=== PATIENT | female | born 1995 | race Caucasian/White ===

== ENCOUNTER 2020-02-27 19:26 | Inpatient (IN) | payer BC, SELFPAY ==
[2020-02-27] VITALS (55 sets, daily range): BP systolic 85–240; BP diastolic 41–194; PULSE 26–180; RESP 18–20; TEMP 36.4–36.8; O2SAT 75–100; BMI 33.3
--- NOTE | 2020-02-27 19:26 | OBADM ---
This patient, Mila Maldonado, admitted to the OB room Labor/Delivery/Recovery 108 for observation. Patient/family oriented to hospital policies and general routines including ID bracelet, bed and alarms, visiting hours, pain management, procedures, bathroom and other care routines, personal items, smoking policy, room service/diet, and visiting hours. Patient/Family are encouraged to report perceived risks to care and to ask questions if they do not understand what they are told or what they should do.
[2020-02-27] MEDS: LACTATED RINGERS 1,000 ML 125 ML IV CONT ×2 (20:30→22:18)
--- NOTE | 2020-02-27 20:30 | LDADM ---
This patient, Mila Maldonado, was admitted to Labor/Delivery/Recovery 108 on 02/27/20 at 19:26. Plans for labor, pain management and were discussed with patient. Patient/family oriented to hospital policies and general routines including ID bracelet, bed and alarms, visiting hours, pain management, procedures, bathroom and other care routines, personal items, smoking policy, room service/diet and guest tray routines, security routines, and visiting hours. Patient/Family are encouraged to report perceived risks to care and to ask questions if they do not understand what they are told or what they should do. See OBIX for further documentation.
[2020-02-27 20:34] LABS: Basophils Percent Auto 0.2 % (0.2-1.2); Eosinophils Percent Auto 0.3 % (0-4.4); Hematocrit 37.4 % (37.0-47.0); Hemoglobin 13.2 g/dL (12.0-15.0); Immature Granulocyte Absolute 0.06 K/mm3 (0.00-0.031); Immature Granulocyte Percent A 0.4 % (0-0.5); Lymphocytes Absolute Auto 2.28 K/mm3 (0.9-3.2); Lymphocytes Percent Auto 15.9 % (18.3-44.2); Mean Corpuscular HGB Conc 35.3 g/dl (32-36); Mean Corpuscular Hemoglobin 29.1 pg (26-34); Mean Corpuscular Volume 82.4 fl (80-100); Mean Platelet Volume 10.2 fl (7.4-10.4); Monocytes Absolute Auto 0.5 K/mm3 (0.1-0.6); Monocytes Percent Auto 3.4 % (2.6-8.5); Neutrophils Absolute Auto 11.4 K/mm3 (1.3-6.7); Neutrophils Percent Auto 79.8 % (45.5-73.1); Platelet Count Result 276 k/mm3 (150-375); Red Blood Count 4.54 M/mm3 (4.2-5.4); Red Cell Distribution Width 12.7 % (11.5-14.5); White Blood Count 14.3 K/mm3 (4.5-10.0)
[2020-02-27 20:47] LABS: Uric Acid 5.9 mg/dL (2.5-7.5)
[2020-02-27 20:48] LABS: Alanine Aminotransferase 11 U/L (4-35); Albumin Level 3.3 g/dL (3.5-5.1); Alkaline Phosphatase 315 U/L (38-126); Anion Gap 13 mmol/L (8-16); Aspartate Amino Transferase 20 U/L (14-36); Bilirubin,Total 0.5 mg/dL (0.2-1.3); Blood Urea Nitrogen 8 mg/dL (7-17); Calcium 9.3 mg/dL (8.4-10.2); Carbon Dioxide 17 mmol/L (22-30); Chloride 105 mmol/L (98-107); Estimated Glomerular Filt Rate > 60; Glucose 97 mg/dL (65-105); Potassium 3.8 mmol/L (3.4-5.0); Sodium 135 mmol/L (137-145)
[2020-02-27] MEDS: AMPICILLIN 2 GM/NS 100 ML 2 GM/100 ML BAG IVPB (20:49)
[2020-02-27 20:54] LABS: Amphetamine Screen Urine Negative (Negative); Barbiturate Screen Urine Negative (Negative); Benzodiazepines Screen Urine Negative (Negative); Cannabinoid Screen Urine Negative (Negative); Cocaine Screen Urine Negative (Negative); Methadone Screen Urine Negative (Negative); Opiate Screen Urine Negative (Negative); Phencyclidine Screen Urine Negative (Negative)
[2020-02-27] MEDS: fentaNYL CITRATE INJ (*CRX) 100 MCG/2 ML VIAL IV PUSH (21:10)
[2020-02-27] MEDS: ONDANSETRON INJ 4 MG/2 ML VIAL IV PUSH (21:15)
--- NOTE | 2020-02-27 21:16 | PM.IMHP ---
H&P: HPI History of Present Illness Date/Time: 02/27/20 21:16 Chief complaint: Contractions Narrative: Mila Maldonado is a 24 year old female G1 at unknown gestational age, no care. Fundal height is consistent with full term . Presenting with contractions. Extremely uncomfortable with contractions. Review of Systems Constitutional: Constitutional: Reports no additional constitutional complaints Eyes: Eyes: Reports no additional eye complaints Cardiovascular: Cardiovascular: Reports no additional cardiovascular complaints Respiratory: Respiratory: Reports no additional respiratory complaints Gastrointestinal: Gastrointestinal: Reports no additional gastrointestinal complaints Genitourinary: Genitourinary: Reports no additional female genitourinary complaints Musculoskeletal: Musculoskeletal: Reports no additional musculoskeletal complaints Psychiatric: Psychiatric: Reports no additional psychiatric complaints Endocrine: Endocrine: Reports no additional endocrine complaints Hematologic/Lymphatic: Hematologic/Lymphatic: Reports no additional hematologic/lymphatic complaints Allergic/Immunologic: Allergic/Immunologic: Reports no additional allergic/immunologic complaints [facility] Family History Family History Mother Cerebrovascular accident Family history of diabetes mellitus in first degree relative Social History Social History Smoking status: Never smoker Alcohol intake: never Meds Home Medications and Allergies Allergies Allergy/AdvReac Type Severity Reaction Status Date / Time No Known Drug Allergies Allergy Verified 10/03/11 21:29 Vital Signs Vital Signs - 24 hr 02/27/20 20:01 02/27/20 20:26 02/27/20 20:45 Temperature Pulse Rate 105 H 117 H 168 H Respiratory Rate Blood Pressure 200/182 H 195/178 H 211/185 H 02/27/20 21:03 Temperature 36.4 C Pulse Rate Respiratory Rate 20 Blood Pressure Exam Const: General: cooperative, healthy appearing, uncomfortable (with contractions) and well groomed Nutritional Appearance: average body habitus Resp: Effort & Inspection: normal respiratory effort and able to speak in complete sentences Cardio: Rate: regular rate GI: Other: Fundal height consistent with full term : External Female Exam: normal external appearance Manual OB Exam: dilated 6 cm, effaced (90%) and station -1 Amniotic Fluid: Meconium-stained amniotic fluid present Neuro: General: oriented to person, oriented to place, oriented to time and patient oriented x3 Psych: Appearance: grossly normal Mental Status: mental status grossly normal H&P: Results Labs Labs: Short CBC 02/27/20 Range/Units 20:21 WBC 14.3 H (4.5-10.0) K/mm3 Hgb 13.2 (12.0-15.0) g/dL Hct 37.4 (37.0-47.0) % Plt Count 276 (150-375) k/mm3 BMP 02/27/20 20:21 Sodium 135 L Potassium 3.8 Chloride 105 Carbon Dioxide 17 L BUN 8 Creatinine 0.70 Glucose 97 Calcium 9.3 Liver Function 02/27/20 Range/Units 20:21 Total Bilirubin 0.5 (0.2-1.3) mg/dL AST 20 (14-36) U/L ALT 11 (4-35) U/L Alkaline Phosphatase 315 H (38-126) U/L Albumin 3.3 L (3.5-5.1) g/dL Assessment and Plan Assessment and plan (1) Active labor: Status: Acute Assessment and Plan: Admit to L&D Epidural for pain control labs
[2020-02-27 21:28] LABS: HIV 1/2 Ab P24 Ag Result Negative (Negative); Hepatitis B Surface Antigen Negative (Negative); Rubella IgG Antibody 12.4 IU/ML
--- NOTE | 2020-02-27 21:44 | WPDANESEPP ---
Anes - Eval Pre Procedure Procedure: labor epidural Date/Time: 02/27/20 21:44 Surgeon: luan Preop Diagnosis: pain during labor Pre Op Diagnosis: Contractions Patient Data Age: 24 Gender: F Height: Weight: Last Vital Signs Temp 36.4 C 02/27/20 21:03 Pulse 108 H 02/27/20 21:40 Resp 20 02/27/20 21:03 BP 153/79 H 02/27/20 21:40 Pulse Ox 99 02/27/20 21:42 Allergies Allergy/AdvReac Type Severity Reaction Status Date / Time No Known Drug Allergies Allergy Verified 10/03/11 21:29 Laboratory Tests 02/27/20 02/27/20 02/27/20 20:21 20:21 20:21 WBC 14.3 K/mm3 H K/mm3 (4.5-10.0) RBC 4.54 M/mm3 M/mm3 (4.2-5.4) Hgb 13.2 g/dL g/dL (12.0-15.0) Hct 37.4 % % (37.0-47.0) MCV 82.4 fl fl (80-100) MCH 29.1 pg pg (26-34) MCHC 35.3 g/dl g/dl (32-36) RDW 12.7 % % (11.5-14.5) Plt Count 276 k/mm3 k/mm3 (150-375) MPV 10.2 fl fl (7.4-10.4) Immature Gran % (Auto) 0.4 % % (0-0.5) Neut % (Auto) 79.8 % H % (45.5-73.1) Lymph % (Auto) 15.9 % L % (18.3-44.2) Cook % (Auto) 3.4 % % (2.6-8.5) Eos % (Auto) 0.3 % % (0-4.4) Baso % (Auto) 0.2 % % (0.2-1.2) Lymph # (Auto) 2.28 K/mm3 K/mm3 (0.9-3.2) Cook # (Auto) 0.5 K/mm3 K/mm3 (0.1-0.6) Eos # (Auto) 0.0 K/mm3 K/mm3 (0-0.3) Baso # (Auto) 0.0 K/mm3 K/mm3 (0.0-0.1) Abs Immat Gran (auto) 0.06 K/mm3 H K/mm3 (0.00-0.031) Absolute Neuts (auto) 11.4 K/mm3 H K/mm3 (1.3-6.7) Absolute Nucleated RBC 0.0 K/mm3 K/mm3 (0.0-0.012) Nucleated RBC % 0.0 % % (0.0-0.2) Sodium Potassium Chloride Carbon Dioxide Anion Gap BUN Creatinine Estim Creat Clear Calc Estimated GFR Glucose Uric Acid 5.9 mg/dL mg/dL (2.5-7.5) Calcium Total Bilirubin AST ALT Alkaline Phosphatase Total Protein Albumin Urine Opiates Screen Urine Methadone Screen Ur Barbiturates Screen Ur Phencyclidine Scrn Ur Amphetamine Screen U Benzodiazepines Scrn Urine Cocaine Screen U Cannabinoids Screen RPR Hep Bs Antigen HIV 1&2 Ab/P24 Ag 4thGn Negative (Negative) Rubella IgG Antibody Blood Type Antibody Screen 02/27/20 02/27/20 02/27/20 20:21 20:21 20:21 WBC RBC Hgb Hct MCV MCH MCHC RDW Plt Count MPV Immature Gran % (Auto) Neut % (Auto) Lymph % (Auto) Cook % (Auto) Eos % (Auto) Baso % (Auto) Lymph # (Auto) Cook # (Auto) Eos # (Auto) Baso # (Auto) Abs Immat Gran (auto) Absolute Neuts (auto) Absolute Nucleated RBC Nucleated RBC % Sodium 135 mmol/L L mmol/L (137-145) Potassium 3.8 mmol/L mmol/L (3.4-5.0) Chloride 105 mmol/L mmol/L (98-107) Carbon Dioxide 17 mmol/L L mmol/L (22-30) Anion Gap 13 mmol/L mmol/L (8-16) BUN 8 mg/dL mg/dL (7-17) Creatinine 0.70 mg/dL mg/dL (0.7-1.0) Estim Creat Clear Calc Not Reportable Estimated GFR > 60 (59 - ) Glucose 97 mg/dL mg/dL (65-105) Uric Acid Calcium 9.3 mg/dL mg/dL (8.4-10.2) Total Bilirubin 0.5 mg/dL mg/dL (0.2-1.3) AST 20 U/L U/L (14-36) ALT 11 U/L U/L (4-35) A
--- NOTE | 2020-02-27 22:00 | WPDHPUPDATE1 ---
History and Physical Update Update Date/Time: 02/27/20 22:00 History and Physical has been reviewed, including an updated exam of the patient. There are NO changes in the patient's condition. Risks, benefits, and alternatives have been discussed and questions answered. Patient agrees to proceed with procedure. Bedside US performed. Cephalic. Anterior placenta. EFW 3250gm. biometry consistent with gestational age of 37w0d.
[2020-02-28] VITALS (31 sets, daily range): BP systolic 108–155; BP diastolic 61–115; PULSE 65–131; RESP 16–20; TEMP 36.3–37.1; O2SAT 78–100
[2020-02-28] MEDS: AMPICILLIN 1 GM/NS 50 ML 1 GM/50 ML BAG IVPB (00:47)
[2020-02-28] MEDS: OXYTOCIN 30 UNITS/NS 500 ML 30 UNITS/500 ML BAG 999 UNITS IV CONT (02:01)
--- NOTE | 2020-02-28 02:24 | PM.OBPRVD ---
OB - Delivery Note Procedure Delivery date: 02/28/20 Procedure: Normal spontaneous vaginal delivery events: No Care Delivery augmentation: rupture of membranes Delivery monitor: external FHT Route of delivery: Laceration Description: Perineal - 2nd Degree Delivery repair: vicryl Specimen: Yes Estimated blood loss (mL): 400 Anesthesia type: Epidural Narrative: Once she was noted to be complete and ready to push, the labor bed was broken down and legs were placed in stirrups for support. With contractions and maternal efforts, the presented in OA position. The head was delivered. Checked for nuchal cord, nuchal cord noted, was not able to be reduced at the perineum. Gentle downward traction was applied and the anterior shoulder delivered without issues, followed by the posterior shoulder and rest of the body. Nuchal cord reduced upon delivery. was vigorous and crying, so delayed cord clamping of approximately 1 minute was performed. The cord was clamped and cut. Cord gasses collected. Placenta was delivered spontaneously. IV oxytocin administered and fundal massage applied. Exam was performed to identify any lacerations. 2nd degree perineal laceration was repaired with 2-0 Vicryl. Good hemostasis noted. Patient tolerated the procedure well. All instrument and sponge counts were correct at the end of the procedure. [place] Baby Date of : 02/28/20 Time of : 01:55 Weeks of gestation at delivery: 37 Infant gender: Male Weight (pounds): 7 Weight (ounces): 15 presentation: vertex position: Left Occiput Anterior Placenta delivery description: Spontaneous cord vessel description: 3 Vessels score one minute: 8 score five minutes: 9
[2020-02-28] MEDS: OXYTOCIN 30 UNITS/NS 500 ML 30 UNITS/500 ML BAG 125 UNITS IV CONT (02:35)
[2020-02-28] MEDS: BENZOCAINE 20% AER SPR (*SP) 56 GM CAN 1 SPRAY TOPICAL (04:12)
[2020-02-28] MEDS: WITCH HAZEL 40 PADS 1 PAD TOPICAL (04:12)
--- NOTE | 2020-02-28 05:48 | OBPPTRN ---
02/28/2020 at 0422. Patient transferred to post room #280. Oriented to unit, room, information board, rooming in, admission packet and security measures. Patient verbalizes understanding.
[2020-02-28] MEDS: IBUPROFEN 600 MG TABLET PO ×2 (07:22→16:22)
[2020-02-28] MEDS: POLYSACCHARIDE IRON COMPLEX 150 MG CAPSULE PO (07:23)
[2020-02-28] MEDS: MULTIVIT/MIN/PREN/FOL AC/IRON TABLET 1 TAB PO (07:23)
--- NOTE | 2020-02-28 08:40 | PC.NURSE ---
Quality Assurance Supervisor here at 0840 (Jennifer) to speak with patient regarding adoption options.
--- NOTE | 2020-02-28 11:05 | PCCCNOTE ---
Care Coordination. Pt. referred to CC for adoption. Met with pt. and her mother at bedside. Pt. reports she thought she had successful about 9 months ago, but obviously it was not. Pt. given list of adoption agencies and [facility] Spoke with Marylin at [facility] ([phone]). She spoke with pt. via phone and plans to come out to visit with pt. today. Pt.'s mother expressed at bedside to pt. that she thinks pt. shouldn't have adoption. Pt. snapped back that it was not her decision and mother agreed. Marylin aware of this and will see pt. Will follow.
[2020-02-28] MEDS: ONDANSETRON HCL ODT 4 MG TABLET PO (23:56)
[2020-02-29 00:23] LABS: Basophils Percent Auto 0.2 % (0.2-1.2); Eosinophils Absolute Auto 0.1 K/mm3 (0-0.3); Eosinophils Percent Auto 0.8 % (0-4.4); Hematocrit 36.7 % (37.0-47.0); Hemoglobin 12.2 g/dL (12.0-15.0); Immature Granulocyte Absolute 0.06 K/mm3 (0.00-0.031); Immature Granulocyte Percent A 0.4 % (0-0.5); Lymphocytes Absolute Auto 3.54 K/mm3 (0.9-3.2); Lymphocytes Percent Auto 23.6 % (18.3-44.2); Mean Corpuscular HGB Conc 33.2 g/dl (32-36); Mean Corpuscular Hemoglobin 28.8 pg (26-34); Mean Corpuscular Volume 86.8 fl (80-100); Mean Platelet Volume 10.3 fl (7.4-10.4); Monocytes Absolute Auto 0.6 K/mm3 (0.1-0.6); Monocytes Percent Auto 3.9 % (2.6-8.5); Neutrophils Absolute Auto 10.7 K/mm3 (1.3-6.7); Neutrophils Percent Auto 71.1 % (45.5-73.1); Platelet Count Result 265 k/mm3 (150-375); Red Blood Count 4.23 M/mm3 (4.2-5.4); Red Cell Distribution Width 13.1 % (11.5-14.5)
[2020-02-29 00:35] LABS: Alanine Aminotransferase 11 U/L (4-35); Albumin Level 3.5 g/dL (3.5-5.1); Alkaline Phosphatase 216 U/L (38-126); Anion Gap 6 mmol/L (8-16); Aspartate Amino Transferase 27 U/L (14-36); Bilirubin,Total 0.2 mg/dL (0.2-1.3); Blood Urea Nitrogen 8 mg/dL (7-17); Calcium 9.7 mg/dL (8.4-10.2); Carbon Dioxide 27 mmol/L (22-30); Chloride 104 mmol/L (98-107); Estimated CRCL calculation 107 ml/min; Estimated Glomerular Filt Rate > 60; Glucose 94 mg/dL (65-105); Potassium 3.9 mmol/L (3.4-5.0); Sodium 137 mmol/L (137-145)
--- NOTE | 2020-02-29 03:35 | PC.NURSE ---
02/29/2020 @ 2029 Patient viewed the discharge video Mother & Baby Care, The First Two Weeks . Patient was given the opportunity and encouraged to ask questions. Patient verbalized understanding of information shared and has been given the mother/baby guide for home reference.
[2020-02-29 04:00] VITALS: BP 123/73; PULSE 67; RESP 16; TEMP 36.6; O2SAT 99
--- NOTE | 2020-02-29 07:18 | WPDANLDPN2 ---
Anes-Prog Note L&D Date/Time: 02/29/20 07:18 Comfortable throughout: labor Neuraxial method: epidural Epidural/Spinal procedure site: clean & non-tender Neuro status: Neuro function grossly intact. Cardiovascular status: normal Respiratory status: normal Airway patency: baseline Post-Op hydration status: normal Vital Signs: Last Vital Signs Temp 36.6 C 02/29/20 04:00 Pulse 67 02/29/20 04:00 Resp 16 02/29/20 04:00 BP 123/73 02/29/20 04:00 Pulse Ox 99 02/29/20 04:00 Pain score (VAS): 0/10 Post-procedural complaints: none Patient feedback: Patient satisfied with anesthetic care.
[2020-02-29 07:35] VITALS: BP 126/78; PULSE 70; RESP 18; TEMP 36.6; O2SAT 100
--- NOTE | 2020-02-29 07:35 | PM.OBPNVD ---
OB - PN: Subj Subjective Date/time seen: 02/29/20 07:35 S/p on 02/27. Doing well, had some pain issues overnight but now much better. BPs elevated overnight, but pre-e workup negative. Denies headaches, vision changes. OB - PN: Obj Data Labs CBC & Chem 7: 02/29/20 00:09 02/29/20 00:07 Labs: Laboratory Results - last 24 hr 02/29/20 02/29/20 00:07 00:09 WBC 15.0 H RBC 4.23 Hgb 12.2 Hct 36.7 L MCV 86.8 D MCH 28.8 MCHC 33.2 RDW 13.1 Plt Count 265 MPV 10.3 Immature Gran % (Auto) 0.4 Neut % (Auto) 71.1 Lymph % (Auto) 23.6 Frontier % (Auto) 3.9 Eos % (Auto) 0.8 Baso % (Auto) 0.2 Lymph # (Auto) 3.54 H Frontier # (Auto) 0.6 Eos # (Auto) 0.1 Baso # (Auto) 0.0 Abs Immat Gran (auto) 0.06 H Absolute Neuts (auto) 10.7 H Absolute Nucleated RBC 0.0 Nucleated RBC % 0.0 Sodium 137 Potassium 3.9 Chloride 104 Carbon Dioxide 27 Anion Gap 6 L BUN 8 Creatinine 0.80 Estim Creat Clear Calc 107 Estimated GFR > 60 Glucose 94 Calcium 9.7 Total Bilirubin 0.2 AST 27 ALT 11 Alkaline Phosphatase 216 H Total Protein 7.0 Albumin 3.5 OB - PN A/P Assessment and Plan (1) (normal spontaneous vaginal delivery): Code(s): O80 - Encounter for full-term uncomplicated delivery Status: Acute Assessment and Plan: Routine care Pain management Ambulate (2) Gestational HTN: Code(s): O13.9 - Gestational [-induced] hypertension without significant proteinuria, unspecified trimester Status: Acute Assessment and Plan: Pre-E work up negative Time Spent With Patient Time: Total time spent is greater than 50% in coordination of care (as documented) at patient's floor/unit and/or counseling patient: Exam Const: General: cooperative, healthy appearing, comfortable and no acute distress Resp: Effort & Inspection: normal respiratory effort and able to speak in complete sentences Cardio: Rate: regular rate GI: GI Palp: No abdominal tenderness and Yes Soft to palpation Other: fundus firm Neuro: General: oriented to person, oriented to place, oriented to time and patient oriented x3 Psych: Appearance: grossly normal Mental Status: mental status grossly normal
--- NOTE | 2020-02-29 08:21 | PM.OBDSVD ---
DS: Admitting Diagnosis Admitting Diagnosis Admitting Diagnosis: Contractions DS: Discharge Diagnosis Discharge Diagnosis (1) (normal spontaneous vaginal delivery): Code(s): O80 - Encounter for full-term uncomplicated delivery Status: Acute Assessment and Plan: Routine care Pain management Ambulate Baby to be put up for adoption (2) Gestational HTN: Qualifiers: Trimester: third trimester Qualified Code(s): O13.3 - Gestational [-induced] hypertension without significant proteinuria, third trimester Code(s): O13.9 - Gestational [-induced] hypertension without significant proteinuria, unspecified trimester Status: Acute Assessment and Plan: Pre-E work up negative (3) No care in current : Qualifiers: Trimester: third trimester Qualified Code(s): O09.33 - Supervision of with insufficient care, third trimester Code(s): O09.30 - Supervision of with insufficient care, unspecified trimester Status: Acute OB - DS: Summary OB Procedures : None OB Procedures Intrapartum: Spontaneous Vag Delivery OB Procedures: : None Time Spent with Patient Time attestation: Total time spent providing and/or coordinating discharge services: Exam Const: General: cooperative, healthy appearing, comfortable, no acute distress and well groomed Nutritional Appearance: average body habitus Orientation/consciousness: oriented to person, oriented to place, oriented to time and patient oriented x3 Resp: Effort & Inspection: normal respiratory effort and able to speak in complete sentences Cardio: Rate: regular rate GI: Other: fundus firm : External Female Exam: normal external appearance Neuro: General: oriented to person, oriented to place, oriented to time and patient oriented x3 Psych: Appearance: grossly normal Mental Status: mental status grossly normal DS: Data Data Completed and Pending Pending studies at discharge: Pending at discharge 02/28/20 02:01 Surgical [PTH] Routine Labs on day of discharge: Labs from last 24 hours 02/29/20 02/29/20 00:09 00:07 WBC 15.0 H RBC 4.23 Hgb 12.2 Hct 36.7 L MCV 86.8 D MCH 28.8 MCHC 33.2 RDW 13.1 Plt Count 265 MPV 10.3 Immature Gran % (Auto) 0.4 Neut % (Auto) 71.1 Lymph % (Auto) 23.6 Finney % (Auto) 3.9 Eos % (Auto) 0.8 Baso % (Auto) 0.2 Lymph # (Auto) 3.54 H [place] # (Auto) 0.6 Eos # (Auto) 0.1 Baso # (Auto) 0.0 Abs Immat Gran (auto) 0.06 H Absolute Neuts (auto) 10.7 H Absolute Nucleated RBC 0.0 Nucleated RBC % 0.0 Sodium 137 Potassium 3.9 Chloride 104 Carbon Dioxide 27 Anion Gap 6 L BUN 8 Creatinine 0.80 Estim Creat Clear Calc 107 Estimated GFR > 60 Glucose 94 Calcium 9.7 Total Bilirubin 0.2 AST 27 ALT 11 Alkaline Phosphatase 216 H Total Protein 7.0 Albumin 3.5 Discharge Plan Discharge Attending physician on discharge: Claudia Forbes Discharging Clinician: Claudia Forbes Patient Disposition: Home, Self-Care Activity: may shower, as tolerated and pelvic rest Diet: regular Patient Instructions: Antibiotic Form, How to Stop Smoking (DC) Stand Alone Forms: General Discharge Information Follow-up/Referrals: Claudia Forbes DO [Physician] - Discharge Medications: New docusate sodium 100 mg Capsule 100 mg PO BID PRN (Reason: Constipation) Qty: 60 RF: 0 ibuprofen 600 mg Tablet 600 mg PO Q6H PRN (Reason: Cramping) Qty: 90 RF: 0 ondansetron 4 mg Tablet,Disintegrating 4 mg PO Q6H PRN (Reason: Nausea And Vomiting) Qty: 20 RF: 0 No Action No Home Medications RF: 0 Date of admission: 02/27/20 20:30 Primary Care Provider: Shayla Negron Admitting Provider: Claudia Forbes Attending physician on admission: Claudia Forbes
--- NOTE | 2020-02-29 10:19 | PCCCNOTE ---
Addendum entered by JACOB Herzog 02/29/20 13:17: Zoila with [facility] here and filling out paperwork with pt. She will put copy of power of county attorney form that names Jenniffer as 's POA to make decisions after mother discharges. Original Note: Care Coordination. Met with pt. at bedside along with Katrin LIZ, this a.m. Pt. is hoping to go home today and is aware infant will likely not leave until tomorrow per RN. She wants to continue with plan for adoption. She reports her parents are supportive of her, but are just disappointed she doesn't want to keep baby. Spoke with Zoila from [facility] [phone] and she will be out today to help find adoptive family with pt. She will bring her work ID and license to make a copy for 's chart. Will follow
[2020-02-29 12:00] VITALS: BP 136/87; PULSE 76; O2SAT 98
[2020-02-29] MEDS: IBUPROFEN 600 MG TABLET PO (12:03)
[2020-02-29 12:29] LABS: Rapid Plasma Reagin Non-Reactive (NonReactive)
[2020-03-01 07:57] VITALS: BP 153/99; PULSE 98; RESP 20; TEMP 36.7; O2SAT 100
== END 2020-02-29 14:15 | disposition home or self-care (01) | DRG 807 ==
LOC: ANHLDR 02-28 01:48 → ANHOB2 02-28 04:44
PROVIDERS: Admitting Provider Obstetrics & Gynecology; PCP Pediatrics; Visit Provider Obstetrics & Gynecology
DX: O13.4 Gestational [pregnancy-induced] hypertension without significant proteinuria, complicating childbirth (principal); Z37.0 Single live birth; Z3A.37 37 weeks gestation of pregnancy; Z23 Encounter for immunization; O69.81X0 Labor and delivery complicated by cord around neck, without compression, not applicable or unspecified; O70.1 Second degree perineal laceration during delivery; O36.8330 Maternal care for abnormalities of the fetal heart rate or rhythm, third trimester, not applicable or unspecified; O77.0 Labor and delivery complicated by meconium in amniotic fluid; O09.33 Supervision of pregnancy with insufficient antenatal care, third trimester
CPT/HCPCS: 36415; 80053; 80307; 84550; 85025; 86592; 86703; 86762; 86850; 86900; 86901; 87340; 88307; 90471; 90653; A9270; G0008; G0432; J0290; J2405; J2590; J3010; J7120

== ENCOUNTER 2020-03-22 01:43 | Emergency (ER) | payer BC, SELFPAY ==
--- NOTE | ~2020-03-22 | XR_ITS ---
EXAMINATION: XR toe 1st LT min 2V DATE: 03/22/2020 02:27 INDICATION: Soft tissue swelling at the left great toe TECHNIQUE: Dorsal plantar, lateral and oblique views of the left great toe were obtained. COMPARISON: None FINDINGS: Bone alignment is normal. No fracture. Joint spaces are normal. No cortical erosions or periosteal re action. Prominent soft tissue swelling plantar and medial to the first metatarsophalangeal joint. No soft tissue gas or radiopaque foreign body. IMPRESSION: Prominent soft tissue swelling medial and plantar to the left first metatarsophalangeal joint. No oss eous abnormality. Reviewed, dictated and finalized at location A. ISSIONER OF CONCILIATION IMPRESSION: Prominent soft tissue swelling medial and plantar to the left first metatarsoph alangeal joint. No osseous abnormality.
[2020-03-22 01:48] VITALS: BP 157/85; PULSE 133; RESP 15; TEMP 36.6; O2SAT 100
--- NOTE | 2020-03-22 02:09 | ED.LOWEXIN ---
HPI - Extremity Injury (Lower) General Chief Complaint: Extremity Injury, Lower Stated Complaint: Swollen toe Time Seen by Provider: 03/22/20 01:59 Source: patient Mode of arrival: ambulatory Limitations: no limitations History of Present Illness HPI Narrative: This patient is a 24 year old female who presents for evaluation of left toe pain and swelling. Patient states 3 days ago she developed pain at a callous on her left great toe. She has continued to develop worsening swelling and pain . She denies purulent drainage or injury. Onset (ago): day(s) (3) Related Data Allergies Allergy/AdvReac Type Severity Reaction Status Date / Time No Known Drug Allergies Allergy Unknown Verified 03/22/20 01:50 Review of Systems Review of Systems: All systems reviewed & are unremarkable except as noted in HPI and below Constitutional: Constitutional: Denies chills and Denies fever(s) Respiratory: Respiratory: Denies cough and Denies dyspnea Gastrointestinal: Gastrointestinal: Denies abdominal pain, Denies nausea and Denies vomiting PMFSH Past Medical History Medical History (Updated 03/22/20 @ 07:20 by Latasha Jack MD) Anxiety Family History Family History (Updated 02/27/20 @ 21:48 by Ruthy Chun RN) Mother Family history of diabetes mellitus in first degree relative Cerebrovascular accident Father Family history of diabetes mellitus in first degree relative Social History Social History Smoking status: Current every day smoker Tobacco type: e-cigarettes/vaping Alcohol intake: never Gender identity (if verbalized by the patient): Female Exam Const: General: alert Orientation/consciousness: patient oriented x3 Eyes: EOM: EOMs intact bilaterally Resp: Effort & Inspection: normal respiratory effort Neuro: General: patient oriented x3, moves all extremities and CN's II-XI intact bilaterally Extrem: Other: left foot with swelling to great toe and dorsum of foot, there is area of fluctuance medial great toe, no drainage erythema to great toe and dorsum of left foot. Psych: Mental Status: mental status grossly normal Course Reevaluation(s) Reevaluation #1: I discussed with patient that she was treated for an abscess. She reports she feels better and she has better movement to her toe. I Discussed discharge plan. Date: 03/22/20 Time: 03:57 Vital Signs Vital signs: Vital Signs Temperature 97.8 F 03/22/20 01:48 Pulse Rate 133 H 03/22/20 01:48 Respiratory Rate 15 03/22/20 01:48 Blood Pressure 157/85 H 03/22/20 01:48 Pulse Oximetry 100 03/22/20 01:48 Temperature 98.7 F 03/22/20 04:02 Pulse Rate 113 H 03/22/20 04:02 Respiratory Rate 15 03/22/20 01:48 Blood Pressure 143/92 H 03/22/20 04:02 Pulse Oximetry 98 03/22/20 04:02 Procedures Abscess I/D foot: Date of Incision: 03/22/20 Time of Incision: 03:30 Side (if applicable): left Local Anesthetic: lidocaine 2% Amount of anesthesia used (mL): 2 Technique: incised with #11 blade and probed loculations Amount of fluid expressed (mL): 3 Irrigation: Yes Packing used?: iodoform I&D Results: Pus and Blood MDM - Extremity Injury (Lower) Lab Data Labs: Lab Results 03/22/20 Range/Units 02:27 POC Capillary Glucose 82 (65-105) mg/dl Imaging Data Attestation: I personally reviewed and interpreted this imaging study as follows: My impression: left first toe- no fracture, sts Discharge Plan Discharge Clinical Impression: Abscess of toe of left foot, Cellulitis and abscess of toe of left foot Patient Disposition: Home, Self-Care Condition: Stable Instructions: Antibiotic Form, Abscess (ED), Abscess Incision and Drainage (DC) Additional Instructions: Today you were treated for an abscess, skin infection. Take antibiotics as prescribed. You can remove the packin
[2020-03-22] MEDS: HYDROcodone/acetaminophen (*CRX) 5-325 MG TABLET 1 TAB PO (02:24)
[2020-03-22] MEDS: ONDANSETRON HCL ODT 4 MG TABLET PO (02:24)
[2020-03-22] MEDS: CEPHALEXIN 500 MG CAPSULE PO (03:32)
[2020-03-22 04:02] VITALS: BP 143/92; PULSE 113; TEMP 37.1; O2SAT 98
[2020-03-22 04:56] LABS: Glucose Point of Care 82 (65-105)
== END 2020-03-22 04:26 | disposition home or self-care (01) ==
PROVIDERS: Emergency Provider General Practice; PCP Pediatrics
DX: L02.612 Cutaneous abscess of left foot (principal); L03.032 Cellulitis of left toe; F17.290 Nicotine dependence, other tobacco product, uncomplicated
CPT/HCPCS: 10061; 73660; 99283; A9270

== ENCOUNTER 2023-07-11 07:43 | Emergency (ER) | payer BC, SELFPAY ==
[2023-07-11] VITALS (18 sets, daily range): BP systolic 82–181; BP diastolic 60–135; PULSE 112–157; RESP 12–25; TEMP 36.3; O2SAT 91–100
--- NOTE | ~2023-07-11 | CT_ITS ---
EXAMINATION: CTA chest PE protocol DATE: 07/11/2023 10:47 INDICATION: Persistent tachycardia TECHNIQUE: Computed tomography angiography (CTA) of the chest was performed with 100 mL Omnipaque-350 intravenous contrast timed to evaluate the pulmonary arteries. Coronal maximum intensity projection 3D-reconstructions were created by the technologist. The dose-length product (DLP) was 837.07 mGy-cm. Automated exposure control and iterative reconstruction technique were employed. COMPARISON: None. FINDINGS: The pulmonary arteries are well-opacified. No pulmonary embolism is identified. There is mi ld atelectasis of the lungs. The lungs are free of focal airspace opacities. No pleural effusion or p neumothorax. No pathologically enlarged thoracic lymph nodes are identified. The heart size is normal . The liver is diffusely low in attenuation when compared with the spleen, consistent with hepatic st eatosis. There is a small sliding hiatal hernia. IMPRESSION: 1. No pulmonary embolism or acute cardiopulmonary abnormality. Reviewed, dictated and finalized at location F.
--- NOTE | 2023-07-11 07:49 | ECG_ITS ---
Measurements Intervals [place] Rate: 135 P: 58 IA: 140 QRS: 41 QRSD: 88 T: 36 QT: 372 QTc: 558 Interpretive Statements SINUS TACHYCARDIA NONSPECIFIC ST & T-WAVE ABNORMALITY- ANT/INF LEADS ABNORMAL ECG NO PREVIOUS ECG AVAILABLE FOR COMPARISON Electronically Signed On 07-11-2023 8:35:58 CDT by Robert Peter D.O.
[2023-07-11 08:22] LABS: Basophils Percent Auto 0.2 % (0.2-1.2); Eosinophils Percent Auto 0.2 % (0-4.4); Hematocrit 48.8 % (37.0-47.0); Hemoglobin 16.8 g/dL (12.0-15.0); Immature Granulocyte Absolute 0.05 K/mm3 (0.00-0.031); Immature Granulocyte Percent A 0.4 % (0-0.5); Lymphocytes Absolute Auto 2.83 K/mm3 (0.9-3.2); Lymphocytes Percent Auto 21.9 % (18.3-44.2); Mean Corpuscular HGB Conc 34.4 g/dl (32-36); Mean Corpuscular Hemoglobin 34.2 pg (26-34); Mean Corpuscular Volume 99.4 fl (80-100); Mean Platelet Volume 9.9 fl (7.4-10.4); Monocytes Absolute Auto 0.7 K/mm3 (0.1-0.6); Monocytes Percent Auto 5.1 % (2.6-8.5); Neutrophils Absolute Auto 9.3 K/mm3 (1.3-6.7); Neutrophils Percent Auto 72.2 % (45.5-73.1); Platelet Count Result 263 k/mm3 (150-375); Red Blood Count 4.91 M/mm3 (4.2-5.4); Red Cell Distribution Width 13.2 % (11.5-14.5); White Blood Count 12.9 K/mm3 (4.5-10.0)
--- NOTE | 2023-07-11 08:31 | ED.NAVMDI ---
HPI - Nausea/Vomiting/Diarrhea General Chief complaint: Nausea/Vomiting/Diarrhea Stated complaint: nausea/vomiting/palpitations Time Seen by Provider: 07/11/23 08:29 Source: patient Mode of arrival: ambulatory Limitations: no limitations History of Present Illness HPI Narrative: Patient presents with vomiting of 2 days duration. She has lost count of the number of times. Non bloody. Last oral intake water. This is associated with some epigastric abdominal pain. Lives with her dad who is not sick. No diarrhea or fevers. Drinks alcohol every other day; last drink Saturday. Unknown if she has ever withdrawn before. Denies recreational drugs. LMP 3/ and did have some spotting yesterday. Denies chest pain at rest, only when throwing up. Some associated shortness of breath. Has noticed some redness under her chin. Denies much caffeine intake. Has some bruising on her left forearm; states she bruises easily. Patient does not have a PCP. Related Data Allergies Allergy/AdvReac Type Severity Reaction Status Date / Time No Known Drug Allergies Allergy Unknown Verified 07/11/23 07:52 [facility] Past Medical History Medical History (Updated 07/12/23 @ 00:01 by Angel Godoy) Anxiety Family History Family History (Updated 02/27/20 @ 21:48 by Ruthy Chun RN) Mother Family history of diabetes mellitus in first degree relative Cerebrovascular accident Father Family history of diabetes mellitus in first degree relative Social History Social History (Updated 07/12/23 @ 13:46 by Ria Thomas MD) Smoking status: Current every day smoker Tobacco type: e-cigarettes/vaping Alcohol intake: current Alcohol use details: every other day Substance use type: does not use Other substance usage details: Denies caffeine intake Current Housing: I Have Housing Living arrangements: with family Additional living arrangements comments: lives with father Gender identity (if verbalized by the patient): Female Exam Narrative: GENERAL: well-nourished, and in no acute distress. HEAD: Normocephalic, atraumatic. EYES: Non injected, mildly icteric ENT: Nares clear, no rhinorrhea or epistaxis. NECK: Supple. CHEST: Non labored breathing. No respiratory distress. HEART: Tachycardic rate and rhythm. . ABDOMEN: Soft, nondistended. No tenderness to palpation. No rigidity or guarding. EXTREMITIES: Normal range of motion. No edema. SKIN: Warm, dry, no rash. NEURO: No focal deficits. Alert and oriented x3. PSYCH: Normal mood and affect. Denies auditory/visual/tactile disturbances. Course Vital Signs Vital signs: Vital Signs Temperature 97.4 F L 07/11/23 07:49 Pulse Rate 145 H 07/11/23 07:49 Respiratory Rate 20 07/11/23 07:49 Blood Pressure 151/90 H 07/11/23 07:49 Pulse Oximetry 100 07/11/23 07:49 Oxygen Delivery Room Air 07/11/23 07:49 Temperature 97.4 F L 07/11/23 07:49 Pulse Rate 112 H 07/11/23 12:50 Respiratory Rate 24 H 07/11/23 12:50 Blood Pressure 168/119 H 07/11/23 12:50 Pulse Oximetry 91 07/11/23 12:50 Oxygen Delivery Room Air 07/11/23 07:49 MDM - Nausea/Vomiting/Diarrhea MDM Narrative Medical decision making narrative: Patient presents with vomiting of 2 days duration. No fevers diarrhea or sick contacts. Had some spotting yesterday despite LMP earlier in the month. Also has some bruising on her left forearm; states has easy bruising. Does drink alcohol every other day and last drink was on Saturday; unknown if she has ever withdrawn before. In the ED she is afebrile with vital signs that show tachycardia at a rate of 145 and hypertension. Initial presumption that sinus tachycardia is secondary to dehydration so will give fluids. Also considering PE given notes shortness of breath. Low suspicion for hemorrhage. Considered sepsis but not febrile or hypertensive or tachypneic. Patient has of a leukocytosis and an elevated hemoglobin, I suspect a degree
[2023-07-11 08:39] LABS: Bacteria Urine 1+ /hpf; Non Pathogenic Casts 0-2; Squamous Epithelial Cell Urine Few /hpf (Few)
[2023-07-11 08:45] LABS: Alanine Aminotransferase 132 U/L (6-35); Albumin Level 4.9 g/dL (3.5-5.1); Alkaline Phosphatase 203 U/L (38-126); Anion Gap 15 mmol/L (4-12); Aspartate Amino Transferase 292 U/L (14-36); Bilirubin,Total 4.7 mg/dL (0.2-1.3); Blood Urea Nitrogen 7 mg/dL (7-17); Calcium 10.3 mg/dL (8.4-10.2); Carbon Dioxide 33 mmol/L (22-30); Chloride 86 mmol/L (98-107); Estimated CRCL calculation 125 ml/min; Estimated Glomerular Filt Rate > 60; Glucose 159 mg/dL (65-110); Lipase 37 U/L (23-300); Sodium 134 mmol/L (137-145)
[2023-07-11 08:54] LABS: Appearance Urine Sl Cloudy (Clear); Blood Urine 2+ (Negative); Color Urine Orange (Yellow); Glucose Urine UA Trace mg/dL (Negative); Ketones Urine 2+ mg/dL (Negative); Protein Urine 3+ mg/dL (Negative); pH Urine 8.5 (5.0-9.0)
[2023-07-11 08:55] LABS: Bilirubin Urine 3+ (Negative); Leukocyte Esterase Ur Negative LEU/UL (Negative); Nitrate Urine Negative (Negative)
[2023-07-11 08:56] LABS: Add Urine Microscopic? YES
[2023-07-11] MEDS: SODIUM CHLORIDE 0.9% IV 1,000 ML 999 ML IV CONT ×2 (09:12→11:46)
[2023-07-11 09:29] LABS: Magnesium 1.6 mg/dL (1.6-2.3)
--- NOTE | 2023-07-11 09:39 | ECG_ITS ---
Measurements Intervals [place] Rate: 129 P: 59 DE: 137 QRS: 41 QRSD: 82 T: 13 QT: 341 QTc: 501 Interpretive Statements SINUS TACHYCARDIA MINIMAL Q WVES- INFERIOR LEADS BORDERLINE ST-T WAVE ABNORMALITY- DIFFUSE LEADS BASELINE ARTIFACT- I, II, III, AVR, AVL, AVF, V1-V3 ABNORMAL ECG COMPARED TO ECG 07/11/2023 07:51:42 NO SIGNIFICANT CHANGES Electronically Signed On 07-11-2023 10:12:00 CDT by Robert Peter D.O.
[2023-07-11 09:41] LABS: D Dimer 0.52 ug/mL (<0.48)
[2023-07-11] MEDS: POTASSIUM PHOS/SODIUM PHOS 250 MG TABLET PO (09:41)
[2023-07-11] MEDS: MAGNESIUM SULF 1 GM/D5W 100 ML 1 GM/100 ML BAG IVPB (09:59)
[2023-07-11 10:00] LABS: Influenza A QL RT-PCR Negative (Negative); Influenza B QL RT-PCR Negative (Negative); SARS-CoV-2 RNA PCR Negative (Negative)
[2023-07-11 10:52] LABS: Free T4 Free Thyroxine 2.52 ng/mL (0.78-2.19)
[2023-07-11] MEDS: ONDANSETRON INJ 4 MG/2 ML VIAL IV PUSH (11:46)
[2023-07-11] MEDS: LORazepam INJ (*CRX) 2 MG/ML VIAL 1 MG IV PUSH (11:58)
[2023-07-11 12:18] LABS: Amphetamine Screen Urine Negative (Negative); Barbiturate Screen Urine Negative (Negative); Benzodiazepines Screen Urine Negative (Negative); Cannabinoid Screen Urine Negative (Negative); Cocaine Screen Urine Negative (Negative); Methadone Screen Urine Negative (Negative); Opiate Screen Urine Negative (Negative); Phencyclidine Screen Urine Negative (Negative)
[2023-07-19 12:39] LABS: T3 Free 3.2 pg/mL
== END 2023-07-11 13:17 | disposition home or self-care (01) ==
PROVIDERS: Emergency Provider Student in an Organized Health Care Education/Training Program; PCP Pediatrics
DX: N39.0 Urinary tract infection, site not specified (principal); R11.10 Vomiting, unspecified; E87.6 Hypokalemia; E87.1 Hypo-osmolality and hyponatremia; D72.829 Elevated white blood cell count, unspecified; R94.6 Abnormal results of thyroid function studies; R00.0 Tachycardia, unspecified; D75.1 Secondary polycythemia; Z20.822 Contact with and (suspected) exposure to COVID-19; F17.290 Nicotine dependence, other tobacco product, uncomplicated; R74.01 Elevation of levels of liver transaminase levels; R94.31 Abnormal electrocardiogram [ECG] [EKG]
CPT/HCPCS: 36415; 71275; 80053; 80307; 81001; 81025; 83690; 83735; 84439; 84443; 84480; 85025; 85380; 87086; 87088; 87636; 93005; 96365; 96366; 96367; 96375; 99284; A9270; J0696; J2060; J2405; J3475; J7030; Q9967